=== PATIENT | male | born 1965 | race Caucasian/White ===

== ENCOUNTER 2017-12-23 11:16 | Emergency (ER) | payer BC ==
[~2017-12-23] VITALS: Ht 177.8 cm; Wt 79.4 kg
--- NOTE | 2017-12-23 11:40 | NUR ---
Clean and irrigate pt's scalp lac.
--- NOTE | 2017-12-23 11:50 | NUR ---
Dr Grullon at the bedside for MSE.
[2017-12-23] MEDS ORDERED: TDAP DIPH,PERTUSS,TET VAC/PF 0.5 ML DISP.SYRIN IM ONE ×2 (12:00→12:02)
--- NOTE | 2017-12-23 12:11 | NUR ---
Patient discharged to home in stable conditon. Written and verbal after care instructions given. Patient verbalizes understanding of instructions.
[2017-12-23 12:12] VITALS: BP 112/61
== END 2017-12-23 12:12 | disposition home or self-care (01) ==
LOC: ER 11:16
DX: S01.01XA Laceration without foreign body of scalp, initial encounter (principal); F12.10 Cannabis abuse, uncomplicated; W01.198A Fall on same level from slipping, tripping and stumbling with subsequent striking against other object, initial encounter; Y93.01 Activity, walking, marching and hiking; Y92.89 Other specified places as the place of occurrence of the external cause; Y99.8 Other external cause status
CPT/HCPCS: 90715; A4217; A4663